=== PATIENT | male | born 1950 | race Caucasian/White ===

== ENCOUNTER 2022-04-07 10:16 | Inpatient (IN) ==
[2022-04-07] MEDS ORDERED: levoFLOXacin 750 MG/150 ML 750 MG/150 ML BAG IVPB ONE (10:24)
[2022-04-07] MEDS ORDERED: 0.9 % Sodium Chloride 1,000 ML IVC ONE (10:24)
[2022-04-07 10:57] LABS: Basophils # 0.1 K/mcL (0.0-0.2); Basophils % 0.3 %; Hematocrit 36.3 % (37.5-50.1); Hemoglobin 11.8 g/dL (12.9-16.9); Immature Granulocytes % 0.6 % (0-4); Lymphocytes # 0.7 K/mcL (0.6-4.6); Lymphocytes % 2.8 %; Mean Corpuscular HGB Conc 32.5 g/dL (31.6-35.5); Mean Corpuscular Hemoglobin 29.4 pg (28.0-33.3); Mean Corpuscular Volume 90.3 fL (83.0-100.0); Mean Platelet Volume 9.6 fL (9.4-12.4); Monocytes # 1.8 K/mcL (0.0-1.3); Monocytes % 7.5 %; Platelet Count 231 K/mcL (140-400); Red Blood Count 4.02 M/mcL (4.19-5.50); Red Cell Distribution Width 13.3 % (11.5-14.5); Segmented Neutrophils % 88.8 %; White Blood Count 23.6 K/mcL (4.3-11.1)
[2022-04-07 11:12] LABS: Bilirubin,Urine Small (Negative); Blood,Urine Small (Negative); Clarity,Urine Cloudy (Clear); Color,Urine Dark Yellow (Yellow); Glucose,Urine (UA) 100 mg/dL (Normal); Ketones,Urine Trace mg/dL (Negative); Leukocyte Esterase,Urine Moderate (Negative); Nitrite,Urine Negative (Negative); PH,Urine 5.5 pH Units (5.0-8.0); Protein,Urine 100 mg/dL (Neg-Trace); Specific Gravity,Urine 1.025 (1.010-1.025); Urobilinogen,Urine Normal (Normal)
[2022-04-07 11:22] LABS: Bacteria,Urine Many per hpf (None-Few); WBC,Urine TNTC per hpf (0-3)
[2022-04-07 11:22] LABS: Activated Partial Thrombo Time 38.9 Seconds (26.0-36.0)
[2022-04-07 11:27] LABS: Albumin/Globulin Ratio 1.1 (1.1-2.2); Bilirubin,Direct 0.2 mg/dL (0.0-0.2); Bilirubin,Indirect 0.7 mg/dL (0.0-1.0); Bilirubin,Total 0.9 mg/dL (0.3-1.0); Calcium 8.5 mg/dL (8.6-10.3); Globulin 2.7 g/dL (2.4-3.5); Magnesium 1.3 mg/dL (1.6-2.6); Phosphorous 1.6 mg/dL (2.7-4.5); Potassium 4.2 mEq/L (3.5-5.1); Total Protein 5.7 g/dL (6.4-8.9); Troponin I 0.03 ng/mL (< 0.04)
[2022-04-07 11:46] LABS: Prothrombin Time 43.6 Seconds (9.4-12.1)
[2022-04-07] MEDS ORDERED: Naloxone 0.4 MG/ML INJ IVP PRN (15:09)
[2022-04-07] MEDS ORDERED: Ondansetron ODT 4 MG TAB.RAPDIS PO PRN (15:32)
[2022-04-07] MEDS: 0.9 % Sodium Chloride 1,000 ML IVC SCH (15:56)
[2022-04-07] MEDS: Acetaminophen 325 MG TABLET PO PRN (17:15)
[2022-04-07] MEDS ORDERED: Acetaminophen IV 1,000 MG/100 ML BAG IVPB ONE (19:42)
[2022-04-08] MEDS: 0.9 % Sodium Chloride 1,000 ML IVC SCH ×2 (01:32→21:55)
[2022-04-08 06:28] LABS: Basophils # 0.1 K/mcL (0.0-0.2); Basophils % 0.2 %; Eosinophils % 0.1 %; Hematocrit 36.4 % (37.5-50.1); Hemoglobin 11.7 g/dL (12.9-16.9); Immature Granulocytes % 1.4 % (0-4); Lymphocytes # 1.7 K/mcL (0.6-4.6); Lymphocytes % 6.7 %; Mean Corpuscular HGB Conc 32.1 g/dL (31.6-35.5); Mean Corpuscular Hemoglobin 28.6 pg (28.0-33.3); Mean Platelet Volume 9.8 fL (9.4-12.4); Monocytes # 1.4 K/mcL (0.0-1.3); Monocytes % 5.5 %; Platelet Count 234 K/mcL (140-400); Red Blood Count 4.09 M/mcL (4.19-5.50); Red Cell Distribution Width 13.7 % (11.5-14.5); Segmented Neutrophils % 86.1 %; White Blood Count 24.6 K/mcL (4.3-11.1)
[2022-04-08 06:35] LABS: Neutrophils # 21.2 K/mcL (1.6-8.9)
[2022-04-08 06:42] LABS: Calcium 8.4 mg/dL (8.6-10.3); Potassium 3.7 mEq/L (3.5-5.1)
[2022-04-08] MEDS: Aspirin Enteric Coated 81 MG Tablet PO SCH (08:43)
[2022-04-08] MEDS: levoFLOXacin 750 MG/150 ML 750 MG/150 ML BAG IVPB SCH (11:55)
[2022-04-08] MEDS: *HR* Rivaroxaban 10 MG TABLET PO SCH (17:39)
[2022-04-08] MEDS: Acetaminophen 325 MG TABLET PO PRN (17:53)
[2022-04-08] MEDS ORDERED: Dextrose Gel 15 GM/37.5 ML TUBE PO PRN ×2 (17:59)
[2022-04-08] MEDS ORDERED: D5% in Water 1,000 ML IVC PRN (17:59)
[2022-04-08] MEDS ORDERED: *HR* Dextrose 50 % in Water (Syg) 50 ML SYRINGE IVP PRN (17:59)
[2022-04-08] MEDS: *HR* HYDROcodone/Acet 5/325 mg TABLET PO PRN (19:35)
[2022-04-08] MEDS: Famotidine 20 MG TABLET PO SCH (21:54)
[2022-04-08] MEDS: Gabapentin 100 MG CAPSULE PO SCH (21:55)
[2022-04-08] MEDS: atenoloL 50 MG TABLET PO SCH (21:55)
[2022-04-08] MEDS: Insulin LISPRO 300 UNITS/3 ML VIAL SUBQ SCH (23:23)
[2022-04-09] MEDS: *HR* HYDROcodone/Acet 5/325 mg TABLET PO PRN ×3 (05:53→20:56)
[2022-04-09 06:22] LABS: Basophils % 0.3 %; Eosinophils # 0.1 K/mcL (0.0-0.6); Eosinophils % 0.9 %; Hematocrit 34.8 % (37.5-50.1); Hemoglobin 11.3 g/dL (12.9-16.9); Immature Granulocytes % 0.9 % (0-4); Lymphocytes # 1.2 K/mcL (0.6-4.6); Lymphocytes % 7.9 %; Mean Corpuscular HGB Conc 32.5 g/dL (31.6-35.5); Mean Corpuscular Hemoglobin 29.2 pg (28.0-33.3); Mean Corpuscular Volume 89.9 fL (83.0-100.0); Mean Platelet Volume 9.9 fL (9.4-12.4); Monocytes # 0.8 K/mcL (0.0-1.3); Monocytes % 5.6 %; Neutrophils # 12.7 K/mcL (1.6-8.9); Platelet Count 245 K/mcL (140-400); Red Blood Count 3.87 M/mcL (4.19-5.50); Red Cell Distribution Width 13.7 % (11.5-14.5); Segmented Neutrophils % 84.4 %
[2022-04-09 06:27] LABS: Basophils # 0.1 K/mcL (0.0-0.2)
[2022-04-09 06:53] LABS: Calcium 8.2 mg/dL (8.6-10.3); Potassium 3.7 mEq/L (3.5-5.1)
[2022-04-09] MEDS ORDERED: NON-FORMULARY MEDICATION 1 EACH EACH (Rivaroxaban [Xarelto] 20 MG Tablet) PO SCH (09:00)
[2022-04-09] MEDS: atenoloL 50 MG TABLET PO SCH ×2 (09:24→20:56)
[2022-04-09] MEDS: GlipiZIDE 5 MG TABLET PO SCH ×2 (09:24→17:53)
[2022-04-09] MEDS: levoFLOXacin 750 MG/150 ML 750 MG/150 ML BAG IVPB SCH (09:24)
[2022-04-09] MEDS: 0.9 % Sodium Chloride 1,000 ML IVC SCH ×3 (09:24→20:57)
[2022-04-09] MEDS: Gabapentin 100 MG CAPSULE PO SCH ×3 (09:25→20:56)
[2022-04-09] MEDS: Finasteride 5 MG TABLET PO SCH (09:25)
[2022-04-09] MEDS: lisinopriL 5 MG TABLET PO SCH (09:25)
[2022-04-09] MEDS: Aspirin Enteric Coated 81 MG Tablet PO SCH (09:25)
[2022-04-09] MEDS: Isosorbide MONOnitrate (24 HR) 30 MG TAB.ER.24H PO SCH (09:25)
[2022-04-09] MEDS: Famotidine 20 MG TABLET PO SCH ×2 (09:25→20:56)
[2022-04-09] MEDS: Insulin LISPRO 300 UNITS/3 ML VIAL SUBQ SCH ×4 (09:51→20:56)
[2022-04-09 17:00] LABS: INR 1.8; Prothrombin Time 20.4 Seconds (9.4-12.1)
[2022-04-09] MEDS: *HR* Rivaroxaban 10 MG TABLET PO SCH (17:53)
[2022-04-09] MEDS: Acetaminophen 325 MG TABLET PO PRN (18:15)
[2022-04-10] MEDS: *HR* HYDROcodone/Acet 5/325 mg TABLET PO PRN ×3 (04:22→23:25)
[2022-04-10] MEDS: 0.9 % Sodium Chloride 1,000 ML IVC SCH ×2 (07:14→20:23)
[2022-04-10] MEDS: Isosorbide MONOnitrate (24 HR) 30 MG TAB.ER.24H PO SCH (07:29)
[2022-04-10] MEDS: Famotidine 20 MG TABLET PO SCH ×2 (07:29→20:23)
[2022-04-10] MEDS: atenoloL 50 MG TABLET PO SCH ×2 (07:29→20:23)
[2022-04-10] MEDS: Gabapentin 100 MG CAPSULE PO SCH ×3 (07:29→20:23)
[2022-04-10] MEDS: Finasteride 5 MG TABLET PO SCH (07:29)
[2022-04-10] MEDS: Insulin LISPRO 300 UNITS/3 ML VIAL SUBQ SCH ×4 (07:30→20:07)
[2022-04-10] MEDS: lisinopriL 5 MG TABLET PO SCH (07:30)
[2022-04-10] MEDS: Aspirin Enteric Coated 81 MG Tablet PO SCH (07:30)
[2022-04-10] MEDS: GlipiZIDE 5 MG TABLET PO SCH ×2 (07:30→16:57)
[2022-04-10] MEDS ORDERED: EXENATIDE MICROSPHERES 2 MG SUBQ SCH (09:00)
[2022-04-10] MEDS: levoFLOXacin 750 MG/150 ML 750 MG/150 ML BAG IVPB SCH (11:37)
[2022-04-10 13:14] LABS: Basophils % 0.4 %; Eosinophils # 0.2 K/mcL (0.0-0.6); Hematocrit 33.7 % (37.5-50.1); Hemoglobin 10.8 g/dL (12.9-16.9); Immature Granulocytes % 0.6 % (0-4); Lymphocytes % 9.7 %; Mean Corpuscular Volume 90.3 fL (83.0-100.0); Mean Platelet Volume 9.3 fL (9.4-12.4); Monocytes # 0.6 K/mcL (0.0-1.3); Monocytes % 6.2 %; Platelet Count 247 K/mcL (140-400); Red Blood Count 3.73 M/mcL (4.19-5.50); Red Cell Distribution Width 13.6 % (11.5-14.5); Segmented Neutrophils % 81.1 %; White Blood Count 9.8 K/mcL (4.3-11.1)
[2022-04-10] MEDS: Cefdinir 300 MG CAPSULE PO SCH ×2 (14:45→20:23)
[2022-04-10] MEDS: *HR* Rivaroxaban 10 MG TABLET PO SCH (16:57)
[2022-04-11] MEDS: 0.9 % Sodium Chloride 1,000 ML IVC SCH ×2 (06:30→17:29)
[2022-04-11] MEDS: *HR* HYDROcodone/Acet 5/325 mg TABLET PO PRN ×3 (06:30→22:50)
[2022-04-11 06:34] LABS: Basophils # 0.1 K/mcL (0.0-0.2); Basophils % 0.8 %; Eosinophils # 0.3 K/mcL (0.0-0.6); Eosinophils % 3.2 %; Immature Granulocytes % 0.6 % (0-4); Mean Corpuscular HGB Conc 32.4 g/dL (31.6-35.5); Mean Corpuscular Hemoglobin 29.2 pg (28.0-33.3); Mean Platelet Volume 9.1 fL (9.4-12.4); Monocytes # 0.8 K/mcL (0.0-1.3); Monocytes % 9.7 %; Neutrophils # 6.2 K/mcL (1.6-8.9); Platelet Count 257 K/mcL (140-400); Red Blood Count 4.11 M/mcL (4.19-5.50); Red Cell Distribution Width 13.4 % (11.5-14.5); Segmented Neutrophils % 73.7 %; White Blood Count 8.5 K/mcL (4.3-11.1)
[2022-04-11] MEDS: Aspirin Enteric Coated 81 MG Tablet PO SCH (09:17)
[2022-04-11] MEDS: Cefdinir 300 MG CAPSULE PO SCH ×2 (09:17→21:06)
[2022-04-11] MEDS: Gabapentin 100 MG CAPSULE PO SCH ×3 (09:17→21:06)
[2022-04-11] MEDS: atenoloL 50 MG TABLET PO SCH ×2 (09:17→21:06)
[2022-04-11] MEDS: Famotidine 20 MG TABLET PO SCH ×2 (09:17→21:06)
[2022-04-11] MEDS: Finasteride 5 MG TABLET PO SCH (09:17)
[2022-04-11] MEDS: Isosorbide MONOnitrate (24 HR) 30 MG TAB.ER.24H PO SCH (09:17)
[2022-04-11] MEDS: GlipiZIDE 5 MG TABLET PO SCH ×2 (09:17→16:20)
[2022-04-11] MEDS: lisinopriL 10 MG TABLET PO SCH (09:18)
[2022-04-11] MEDS: levoFLOXacin 750 MG/150 ML 750 MG/150 ML BAG IVPB SCH (09:19)
[2022-04-11] MEDS: Insulin LISPRO 300 UNITS/3 ML VIAL SUBQ SCH ×4 (09:19→21:06)
[2022-04-11] MEDS: *HR* Rivaroxaban 10 MG TABLET PO SCH (16:20)
[2022-04-12] MEDS: 0.9 % Sodium Chloride 1,000 ML IVC SCH (03:30)
[2022-04-12] MEDS: *HR* HYDROcodone/Acet 5/325 mg TABLET PO PRN ×2 (05:46→12:14)
[2022-04-12 07:34] LABS: Basophils # 0.1 K/mcL (0.0-0.2); Basophils % 0.5 %; Eosinophils # 0.5 K/mcL (0.0-0.6); Hematocrit 35.3 % (37.5-50.1); Hemoglobin 11.3 g/dL (12.9-16.9); Immature Granulocytes % 0.8 % (0-4); Lymphocytes % 10.2 %; Mean Corpuscular Hemoglobin 28.8 pg (28.0-33.3); Mean Corpuscular Volume 89.8 fL (83.0-100.0); Mean Platelet Volume 9.7 fL (9.4-12.4); Monocytes % 9.7 %; Neutrophils # 7.5 K/mcL (1.6-8.9); Platelet Count 268 K/mcL (140-400); Red Blood Count 3.93 M/mcL (4.19-5.50); Red Cell Distribution Width 13.5 % (11.5-14.5); Segmented Neutrophils % 73.8 %; White Blood Count 10.2 K/mcL (4.3-11.1)
[2022-04-12 07:43] LABS: Calcium 8.3 mg/dL (8.6-10.3); Magnesium 1.4 mg/dL (1.6-2.6); Potassium 3.9 mEq/L (3.5-5.1)
[2022-04-12 08:11] VITALS: RESP 16
[2022-04-12] MEDS ORDERED: levoFLOXacin 750 MG TABLET PO SCH (09:00)
[2022-04-12] MEDS: Gabapentin 100 MG CAPSULE PO SCH ×2 (09:02→16:29)
[2022-04-12] MEDS: Finasteride 5 MG TABLET PO SCH (09:02)
[2022-04-12] MEDS: Aspirin Enteric Coated 81 MG Tablet PO SCH (09:02)
[2022-04-12] MEDS: Isosorbide MONOnitrate (24 HR) 30 MG TAB.ER.24H PO SCH (09:03)
[2022-04-12] MEDS: GlipiZIDE 5 MG TABLET PO SCH (09:03)
[2022-04-12] MEDS: Acetaminophen 325 MG TABLET PO PRN (09:03)
[2022-04-12] MEDS: lisinopriL 10 MG TABLET PO SCH (09:03)
[2022-04-12] MEDS: Cefdinir 300 MG CAPSULE PO SCH (09:03)
[2022-04-12] MEDS: Famotidine 20 MG TABLET PO SCH (09:03)
[2022-04-12] MEDS: atenoloL 50 MG TABLET PO SCH (09:03)
[2022-04-12] MEDS: Insulin LISPRO 300 UNITS/3 ML VIAL SUBQ SCH ×2 (09:05→12:14)
[2022-04-12] MEDS ORDERED: Sennosides/Docusate Sodium TABLET PO PRN (10:00)
[2022-04-12 12:27] VITALS: BP 133/53; PULSE 59; TEMP 98.6; O2SAT 94
== END 2022-04-12 16:41 | disposition home or self-care (01) | DRG 872 ==
LOC: INPPIK 10:16 → EMEROOPIK 10:16 → INPPIK 15:40
PROVIDERS: ADMIT Internal Medicine; ATTEND Internal Medicine